=== PATIENT | male | born 1985 | race Caucasian/White ===

== ENCOUNTER 2024-02-23 06:39 | Emergency (ER) | payer OTHER ==
[~2024-02-23] VITALS: Ht 185.4 cm; Wt 71.7 kg
[2024-02-23 07:41] LABS: BASO # 0.1 10*3/uL (0.0-0.1); BASO % 0.5 % (0.0-1.0); EOS % 0.1 % (1.0-4.0); HEMATOCRIT 43.3 % (42.0-52.0); LYMPH # 2.1 10*3/uL (1.3-4.4); LYMPH % 16.4 % (27.0-41.0); MEAN CELL VOLUME 89.6 fl (80.0-94.0); MEAN CORPUSCULAR HGB 29.2 pg (27.0-31.0); MEAN CORPUSCULAR HGB CONC 32.6 g/dl (33.0-37.0); MEAN PLATELET VOLUME 8.9 fl (9.6-12.3); MONO # 0.8 10*3/uL (0.1-1.0); MONO % 6.1 % (3.0-9.0); NEUT # 9.9 10*3/uL (2.3-7.9); NEUT % 76.7 % (47.0-73.0); PLATELET COUNT AUTOMATED 347 10*3/uL (130-400); RED BLOOD COUNT 4.83 10*6/uL (4.50-5.90); RED CELL DISTRI WIDTH 14.6 % (0-14.5); WHITE BLOOD COUNT 12.8 10*3/uL (4.8-10.8)
[2024-02-23 08:02] LABS: BUN 12 mg/dl (9-23); CHLORIDE 103 mmol/L (98-107); POTASSIUM 3.7 mmol/L (3.4-5.1)
[2024-02-23 08:04] LABS: ETHYL ALCOHOL < 3.0 mg/dl (<3)
[2024-02-23 08:45] LABS: BILIRUBIN Negative (Negative); BLOOD Negative (Negative); CLARITY Clear (Clear); COLOR Dark Yellow (Yellow); GLUCOSE Negative (Negative); KETONE 3+ (Negative); LEUKO ESTERASE 1+ (Negative); NITRITE Negative (Negative); SPECIFIC GRAVITY >= 1.030 (1.001-1.030)
[2024-02-23 08:54] LABS: URINE AMPHETAMINES Positive (1000ng/ml); URINE BARBITURATES Negative (200ng/ml); URINE BENZODIAZEPINES Negative (200ng/ml); URINE CANNABINOIDS (THC) Positive (50ng/ml); URINE COCAINE Negative (300ng/ml); URINE METHADONE Negative (300ng/ml); URINE OPIATES Negative (300ng/ml); URINE PHENCYCLIDINE Negative (25ng/ml)
[2024-02-23 09:04] LABS: BACTERIA TRACE; CALCIUM OXALATE CRYSTALS 1+; EPITHELIAL CELLS 0-2; MUCOUS 2+; WBC 21-30 wbc/hpf (0-5)
== END 2024-02-23 10:05 | disposition home or self-care (01) ==
LOC: ED 06:39
PROVIDERS: Emergency Medicine; Internal Medicine
DX: R44.0 Auditory hallucinations (principal); F15.10 Other stimulant abuse, uncomplicated; Z91.030 Bee allergy status; Z91.011 Allergy to milk products